=== PATIENT | male | born 1980 | race African-American/Black ===

== ENCOUNTER 2016-10-09 10:47 | Emergency (ER) | payer SELFPAY ==
[~2016-10-09] VITALS: Ht 175.3 cm; Wt 81.8 kg
[~2016-10-09 10:47] MED LIST: CYCL1TAB29 PO; DICL50TA3 PO; htn med
[2016-10-09 10:49] VITALS: BP 140/90; PULSE 78; RESP 20; TEMP 97.8; O2SAT 99
--- NOTE | 2016-10-09 11:07 | PD ---
HPI Chief Complaint: Complaint Time Seen by Provider: 11:07 Travel History International Travel<30 days: No Contact w/Intl Traveler<30days: No Traveled to known affect area: No History of Present Illness HPI 36-year-old male presents to emergency department for evaluation of cracking and irritation of his foreskin. Patient states this is not worsening over the last 2 weeks. States he has had burning with urination. No penile discharge. States he is unable to retract his foreskin without significant pain. Denies any fever or chills. No abdominal pain. No hematuria. No other symptoms to report. Is in a monogamous relationship with his girlfriend. Reports unprotected sexual activity with her. PFSH Past Medical History Medical History: Denies Significant Hx Hypertension: Yes Tetanus Vaccination: Never Vaccinated Influenza Vaccination: No Past Surgical History Surgical History: No Previous Surgery Social History Alcohol Use: Yes (SOCIALLY) Tobacco Use: Yes Substance Use: No Allergies-Medications (Allergen,Severity, Reaction): Coded Allergies: No Known Allergies (Unverified , 10/09/16) Reported Meds & Prescriptions Reported Meds & Active Scripts Active Flagyl (Metronidazole) 500 Mg Tab 500 Mg PO BID 7 Days Clotrimazole Topical (Clotrimazole) 1% Soln 1 Applic TOPICAL BID Review of Systems Except as stated in HPI: all other systems reviewed are Neg Physical Exam Narrative GENERAL: Well-nourished, well-developed patient in no acute distress SKIN: Focused skin assessment warm/dry. HEAD: Normocephalic. EYES: No scleral icterus. No injection or drainage. NECK: Supple, trachea midline. No JVD or lymphadenopathy. CARDIOVASCULAR: Regular rate and rhythm without murmurs, gallops, or rubs. RESPIRATORY: Breath sounds equal bilaterally. No accessory muscle use. GASTROINTESTINAL: Abdomen soft, non-tender, nondistended. GENITOURINARY: Uncircumcised. There are multiple superficial cracks and crusting on the distal foreskin. Foreskin is difficult to retract but does retract completely. No urethral discharge.. Testes descended bilaterally without evidence of rotation. No lesions or erythema. MUSCULOSKELETAL: No cyanosis, or edema. BACK: Nontender without obvious deformity. No CVA tenderness. Data Data Last Documented VS Vital Signs Date Time Temp Pulse Resp B/P Pulse Ox O2 Delivery O2 Flow Rate FiO2 10/09/16 11:10 60 14 160/95 98 Room Air 10/09/16 10:49 97.8 Orders Urinalysis - C+S If Indicated (10/09/16 11:05) Gc And Chlamydia Pcr (10/09/16 11:05) Ceftriaxone Inj (Rocephin Inj) (10/09/16 11:15) Azithromycin (Zithromax) (10/09/16 11:15) Lidocaine 1% Inj (50 Ml) (Xylocaine 1% I (10/09/16 11:30) Labs Laboratory Tests Test 10/09/16 11:20 Urine Color YELLOW Urine Turbidity CLEAR Urine pH 6.5 Urine Specific [place] 1.020 Urine Protein NEG mg/dL Urine Glucose (UA) NEG mg/dL Urine Ketones NEG mg/dL Urine Occult Blood NEG Urine Nitrite NEG Urine Bilirubin NEG Urine Urobilinogen 2.0 MG/DL Urine Leukocyte Esterase NEG Urine RBC LESS THAN 1 /hpf Urine WBC 3 /hpf Urine Squamous Epithelial 1 /hpf Cells Urine Mucus FEW /lpf Microscopic Urinalysis Comment CULT NOT INDICATED Chlamydia trachomatis DNA NOT DETECTED (PCR) Neisseria gonorrhoeae DNA NOT DETECTED (PCR) MDM Medical Decision Making Medical Screen Exam Complete: Yes Emergency Medical Condition: Yes Medical Record Reviewed: Yes Differential Diagnosis Balanitis versus fungal infection versus STD versus UTI Narrative Course 36-year-old male presents to emergency department for evaluation. Patient has cracked and irritated foreskin. No penile discharge. Patient is treated empirically for STD. Urine culture is sent. He'll be prescribed topical clotrimazole. He is encouraged to follow-up with primary care provider and return immediately with any acute worsening of symptoms. Diagnosis Primary Impression: Balanitis Referrals: Primary Care Physician Patient Instructions: Balanitis (ED), General Instructions Additional Instructions: Avoid abrasive soaps Proper hygiene is strongly encouraged. Foreskin needs to be kept clean and dry. Safe sex practices encouraged. Utilize condom prophylaxis. Follow-up with your primary care provider Return immediately with any acute worsening of symptoms Med/Other Pt SpecificInfo: Prescription(s) given Scripts Metronidazole (Flagyl)500 Mg Clo043 Mg PO BID 7 Days Ref 0 Prov:Sofya Valderrama 10/09/16 Clotrimazole Topical 1% Soln1 Applic TOPICAL BID #1 TUBE Ref 0 Prov:Sofya Valderrama 10/09/16 Disposition: 01 DISCHARGE HOME Condition: Stable Sofya Valderrama Oct 09, 2016 11:07
[2016-10-09 11:10] VITALS: BP 160/95; PULSE 60; RESP 14; O2SAT 98
[2016-10-09] MEDS ORDERED: cefTRIAXone 250 MG VIAL IM ONE (11:15)
[2016-10-09] MEDS ORDERED: AZITHROMYCIN 250 MG TAB PO ONE (11:15)
[2016-10-09] MEDS ORDERED: LIDOCAINE HCL 1% 50 ML VIAL XX ONE (11:30)
[2016-10-09 11:48] LABS: BLOOD, URINE NEG (NEG); COMMENT (UR) CULT NOT INDICATED; CULTURE IF INDICATED CULT NOT INDICATED; GLUCOSE,URINE NEG (NEG); KETONE, URINE NEG (NEG); MUCUS URINE FEW /lpf (OCC); NITRITE,URINE NEG (NEG); PH, URINE 6.5 (5.0-8.5); SQUAMOUS EPITHELIAL CELL URINE 1 /hpf (0-5); URINE COLOR YELLOW (YELLW/STRAW)
[2016-10-09] MEDS ORDERED: CLOTR1%T TOPICAL (12:06)
[2016-10-09] MEDS ORDERED: METR-1 PO (12:06)
[2016-10-09 13:58] LABS: CHLAMYDIA PCR NOT DETECTED (NOT DETECT); NEISSERIA PCR NOT DETECTED (NOT DETECT)
== END 2016-10-09 12:51 | disposition home or self-care (01) ==
LOC: NEPE 10:47
DX: N48.1 Balanitis (principal); R30.0 Dysuria; I10 Essential (primary) hypertension; Z72.0 Tobacco use
CPT/HCPCS: 81001; 87491; 87591; 96372; 99283; J0696